=== PATIENT | female | born 1975 | race African-American/Black ===

== ENCOUNTER 2016-05-06 10:14 | Inpatient (IN) | payer OTHER ==
[2016-05-06] VITALS (7 sets, daily range): BP systolic 98–128; BP diastolic 48–79
[~2016-05-06] VITALS: Ht 167.6 cm; Wt 81.6 kg
[~2016-05-06 10:14] MED LIST: BACITRACIN 50,000 UNIT in IV NORMAL SALINE 1000ML BAG 1,000 ML IRR ONE; BUPIVACAINE 0.5% 50 ML VIAL. ONE; BUPIVACAINE MPF 0.5% 30 ML VIAL. IJ ONE; CEFAZOLIN 2GM PREMIX 50 ML IV PRN; CHOL10007 PO; CYAN250012 PO; CYCL10TA2 PO; DEXAMETHASONE SOD PHOS 20 MG/5 ML VIAL. ONE; DOCU100C PO; FENTANYL PF 100 MCG/2 ML VIAL. IV PRN; FENTANYL PF 100 MCG/2 ML VIAL. ONE; GELATIN SPONGE SIZE 100. ONE; HYDR-2666 PO; HYDROMORPHONE 2 MG/ML VIAL. IV PRN; LIDOCAINE 1% 1 ML SYRINGE. ID PRN; LIDOCAINE 1%/EPI 1:100,000 20 ML VIAL. ONE; LIDOCAINE 2% 100 MG/5 ML DISP.SYRIN. ONE; MIDAZOLAM HCL 2 MG/2 ML VIAL. ONE; ONDANSETRON PF 4 MG/2 ML VIAL. IV PRN; OXYC-244 PO; PHENYLEPHRINE 10 MG/ML VIAL. ONE; PROPOFOL 20 ML IV ONE; PROPOFOL 50 ML IV ONE; REMIFENTANIL 2 MG VIAL. IV ONE; ROCURONIUM 50 MG/5 ML VIAL. ONE; SUCCINYLCHOLINE 200 MG/10 ML VIAL. ONE; THROMBIN 20,000 UNIT SPRAY.SYRN KIT TP ONE; TRAZ100T12 PO
[2016-05-06] MEDS: IV RINGERS,LACTATED 1000ML 1,000 ML IV SCH ×2 (10:47→15:28)
[2016-05-06] MEDS ORDERED: GLYCOPYRROLATE 1 MG/5 ML VIAL. ONE (12:17)
[2016-05-06] MEDS ORDERED: PROPOFOL 50 ML IV ONE ×2 (12:57→14:29)
[2016-05-06] MEDS ORDERED: ONDANSETRON PF 4 MG/2 ML VIAL. ONE (14:21)
[2016-05-06] MEDS ORDERED: FENTANYL PF 100 MCG/2 ML VIAL. ONE (14:49)
[2016-05-06] MEDS ORDERED: DESFLURANE > 120 MINUTES IH ONE (14:49)
--- NOTE | 2016-05-06 15:00 | PDOC ---
BRIEF OPERATIVE NOTE Date: May 06, 2016 Pre-Op Diagnosis cervical herniated disk, cervical radiculopathy, weakness Post-Op Diagnosis same Procedure Performed anterior cervical discectomy and instrumented fusion C6-7 Surgeon Anu [employer] Laboratory Technician none Anesthesia Type: General Blood Loss 15mL Specimens Obtained disk/decompression Findings prominent herniated disk material C6-7 in the left lateral recess Complications none apparent Additional Remarks neuromonitoring potentials including motors improved compared to baseline at completion of procedure OPAL LOPEZ MD May 06, 2016 15:00
[2016-05-06] MEDS ORDERED: OXYCODONE/APAP 7.5/325 TABLET. PO PRN (15:15)
[2016-05-06] MEDS ORDERED: NALOXONE 0.4 MG/ML VIAL. IV PRN (15:15)
[2016-05-06] MEDS ORDERED: ZOLPIDEM 5 MG TABLET. PO PRN (15:15)
[2016-05-06] MEDS ORDERED: CALCIUM CARBONATE 500 MG TAB.CHEW PO PRN (15:15)
[2016-05-06] MEDS ORDERED: DIPHENHYDRAMINE HCL 25 MG CAPSULE PO PRN (15:15)
[2016-05-06] MEDS ORDERED: FENTANYL PF 100 MCG/2 ML VIAL. IV PRN (15:15)
[2016-05-06] MEDS ORDERED: DIPHENHYDRAMINE 50 MG/ML VIAL IV PRN (15:15)
[2016-05-06] MEDS ORDERED: MAG HYDROX/ALUMINUM HYDROX/SMC 30 ML ORAL.SUSP PO PRN (15:15)
[2016-05-06] MEDS ORDERED: ONDANSETRON PF 4 MG/2 ML VIAL. IV PRN (15:15)
[2016-05-06] MEDS ORDERED: ACETAMINOPHEN 325 MG TABLET. PO PRN (15:15)
[2016-05-06] MEDS ORDERED: 0.9 % SODIUM CHLORIDE 10 ML DISP.SYRIN. IV PRN (15:15)
[2016-05-06] MEDS ORDERED: MAGNESIUM HYDROXIDE 2,400 MG/30 ML ORAL.SUSP. PO PRN (15:15)
[2016-05-06] MEDS: FENTANYL PF 100 MCG/2 ML VIAL. IV PRN ×2 (15:45→15:50)
[2016-05-06] MEDS: PROCHLORPERAZINE 10 MG/2 ML VIAL. IV PRN ×2 (16:10→16:50)
[2016-05-06] MEDS: MORPHINE SULFATE 2 MG/ML DISP.SYRIN. IV PRN ×2 (16:12→16:49)
[2016-05-06] MEDS: CALCIUM CARB/VIT D3 500/200 TABLET PO SCH (19:16)
[2016-05-06] MEDS: DOCUSATE SODIUM 100 MG CAPSULE PO SCH (21:04)
[2016-05-06] MEDS: SENNOSIDES/DOCUSATE 8.6/50MG TABLET. PO SCH (21:04)
[2016-05-06] MEDS: METHOCARBAMOL 750 MG TABLET PO SCH (21:05)
[2016-05-06] MEDS: OXYCODONE/APAP 7.5/325 TABLET. PO PRN (23:19)
[2016-05-07 03:45] VITALS: BP_SYST 86; BP_SYST 97; BP_DIAS 51; BP_DIAS 61
[2016-05-07 06:35] VITALS: BP 98/62
[2016-05-07] MEDS ORDERED: FERROUS SULFATE 325 MG TABLET PO SCH (08:00)
[2016-05-07] MEDS: CALCIUM CARB/VIT D3 500/200 TABLET PO SCH (08:44)
[2016-05-07] MEDS: DOCUSATE SODIUM 100 MG CAPSULE PO SCH (08:44)
[2016-05-07] MEDS: SENNOSIDES/DOCUSATE 8.6/50MG TABLET. PO SCH (08:44)
[2016-05-07] MEDS: OXYCODONE/APAP 7.5/325 TABLET. PO PRN (08:44)
[2016-05-07] MEDS: METHOCARBAMOL 750 MG TABLET PO SCH (08:44)
--- NOTE | 2016-05-07 08:55 | PDOC ---
SUBJECTIVE Subjective Reports resolution of left arm pain, numbness, and weakness. Some incisional pain that is controlled. Reports swallowing/advancing diet without significant problem. "Sore throat." OBJECTIVE Vital Signs Vital Signs Date Time Temp Pulse Resp B/P Pulse Ox O2 Delivery O2 Flow Rate FiO2 05/07/16 08:44 16 Room Air 05/07/16 06:35 97.9 81 18 98/62 94 Room Air 97.9 05/07/16 03:45 97.9 81 18 97/61 94 Room Air 97.9 05/07/16 00:20 Room Air 05/06/16 23:20 97.9 87 18 98/48 93 Room Air 97.9 05/06/16 23:19 18 96 Room Air 05/06/16 20:30 98.0 80 18 108/55 96 Room Air 98.0 05/06/16 20:15 Room Air 05/06/16 19:30 98.1 91 18 116/71 95 Room Air 98.1 05/06/16 18:30 97.3 83 16 116/79 96 Room Air 97.3 05/06/16 18:15 88 122/73 05/06/16 18:00 90 120/69 05/06/16 17:45 97.7 97 16 128/71 97 Room Air 97.7 05/06/16 17:14 78 20 135/73 98 Room Air 05/06/16 17:00 98.0 93 20 131/66 95 Room Air 98.0 05/06/16 16:49 20 93 Room Air 05/06/16 16:47 98 20 112/68 94 Room Air 05/06/16 16:32 90 20 125/68 94 Room Air 05/06/16 16:18 Room Air 05/06/16 16:12 20 95 Room Air 05/06/16 16:10 98 20 133/72 96 Room Air 05/06/16 15:55 98.0 91 20 139/81 95 Room Air 98.0 05/06/16 15:50 22 99 Room Air 05/06/16 15:45 20 99 Aerosol Mask 10.0 05/06/16 15:40 102 20 144/89 100 Room Air 05/06/16 15:28 22 100 Simple Mask 10.0 05/06/16 15:25 98 20 148/80 100 Simple Mask 10 05/06/16 15:10 Mask 10 05/06/16 15:10 97.1 98 20 134/75 100 Simple Mask 10 97.1 05/06/16 10:34 97.0 94 16 146/81 98 Room Air 97.0 I & O Intake and Output 05/07/16 07:00 Intake Total 2000 ml Output Total 1965 ml Balance 35 ml Intake Oral 250 ml IV Total 1750 ml Output Urine Total 1950 ml Estimated Blood Loss 15 ml PHYSICAL EXAM Physical Exam AAOx4, NAD, speech fluent with good phonation, HALLMAN 5/5, sensation intact LT, dressing c/d/i, flat ASSESSMENT/PLAN Assessment/Plan POD 1 C6-7 ACDF -appears to be recovering well thus far -PT/OT -d/c home today -follow up in two weeks [phone] -rx's in chart (percocet, robaxin, stool softener) Problems: COMMENT Lab Laboratory Tests Test 05/06/16 10:45 Glucose (Fingerstick) 88mg/dL (70-99) OPAL LOPEZ MD May 07, 2016 08:55
[2016-05-07] MEDS ORDERED: MULTIVITAMIN with MINERAL TABLET. PO SCH (09:00)
[2016-05-07] MEDS ORDERED: METH-38 PO (10:58)
[2016-05-07 11:13] VITALS: BP 97/70
--- NOTE | 2016-05-12 14:07 | PATHOLOGY ---
PATHOLOGY REPORT * * * * * * * * FINAL DIAGNOSIS: Segments of cartilaginous tissue and bone, cervical disc and decompression: - Degenerative changes. COMMENT: There is no evidence of an acute inflammatory process or malignancy. (JPM:; d/t: 05/12/16) REPORT ELECTRONICALLY SIGNED BY: Serg Roman M.D. DATE/TIME: 05/12/2016 14:07 * * * * * * * * GROSS PATHOLOGY: Received in formalin labeled "Meliza Lyon - cervical disc and decompression," are multiple segments of cisneros-white rubbery and gritty tissue admixed with possible bone, measuring 3.8 x 3.2 x 0.5 cm in aggregate dimensions. The tissue is submitted representatively in cassette A1, following decalcification. (TTL; 05/07/2016) INITIAL CPT CODE(S): A; 50456, 98354 Professional services [place] [place] [address] Technical services performed by [facility] at [address] [place] [address] [address], [place] [address]. SPECIMEN(S) RECEIVED: A.Cervical disc and decompression CLINICAL HISTORY: Cervical radiculopathy and weakness, cervical disc herniation PATIENT: MELIZA LYON /AGE: 811/15/1975 (Age: 40) PATIENT #: [id number] ALT CASE #: SPECIMEN COLLECTION DATE: 05/06/2016 SPECIMEN RECEIVED DATE: 05/07/2016 [facility] - [address] [place] [address] - PHONE: [phone] * * * END OF REPORT * * *
--- NOTE | 2016-05-13 18:44 | OP ---
DATE OF SURGERY: 05/06/2016 SURGEON: Dr. Frandy Lopez. TRAUMA COUNSELLOR: None. PREOPERATIVE DIAGNOSES: Cervical herniated disk with cervical radiculopathy and weakness. PROCEDURE: Instrumented anterior cervical diskectomy and fusion utilizing structural allograft at cervical 6-7. ANESTHESIA: General. COMPLICATIONS: None intraprocedurally. INDICATIONS FOR THE PROCEDURE: The patient is a 40-year-old female with significant cervical radiculopathy and associated weakness localized to a prominent disk herniation noted at cervical C6-C7. Please refer to the patient chart for additional detail. DESCRIPTION OF PROCEDURE: After informed consent was obtained, the patient was brought into the operating room and was placed under general anesthesia. Neuro monitoring was instituted and baseline potentials were obtained. She was placed in the supine position. A shoulder bump was placed under the shoulder and the head placed in very slight extension exposing the anterior neck. This region was prepped and draped in the usual sterile fashion. Fluoroscopy was utilized to localize an appropriate incision location and a horizontal incision centered over the region of the cervical 6-7 was made with a 10 blade scalpel. Blunt dissection techniques were utilized to dissect the underlying soft tissues and a plane was developed between the carotid sheath laterally and the trachea and the esophagus medially after the platysma was sharply divided in the plane of the incision. Scar tissue was encountered near the previous thyroidectomy. This was gently dissected free with blunt dissection techniques to approach the anterior cervical spine as mentioned above. Level was verified with fluoroscopy and distraction pins were instituted at cervical 6 and cervical 7 and a small amount of cervical traction was obtained after self retainers were instituted. An annulotomy was performed after fluoroscopy was utilized to verify the appropriate level at cervical 6-7. A pituitary rongeur was utilized to remove the disk material and a curette was utilized to remove further disk material from the endplates cervical 6 and cervical 7. Dissection was carried out to the posterior longitudinal ligament. This was gently taken down with a Kerrison rongeur. Significant amount of disk material was identified anterior to this ligament in the epidural space, particularly on the left side. This material was gently teased posteriorly and removed with a pituitary rongeur. Upon completion of this, the thecal sac and neural elements were noted to be very well decompressed. This was verified with direct visualization as well as gentle palpation with a micro blunt hook. Also, it was noted that neuro monitoring potentials including motor potentials were improved upon completion of the discectomy. A structural allograft was subsequently instituted at cervical 6-7. An Amendia anterior plate and screw system was instituted once the graft was in place and traction from the pins was removed. The plate and screws were secured with 2 screws in cervical 6 and 2 in cervical 7 according to the glass mechanic's specifications. Fluoroscopy was utilized to verify that the fusion construct was adequate. Once this was complete, pristine hemostasis was achieved with FloSeal, irrigation, as well as thrombin, and some minimal use of bipolar electrocautery. Once complete, the wound was generously irrigated with antibiotic irrigation prior to the final closure. The platysma was reapproximated with Vicryl suture in simple interrupted fashion. Subcutaneous tissues were reapproximated with Vicryl suture in an interrupted inverted fashion and the skin was reapproximated with 4-0 Vicryl in a running subcuticular fashion. Mastisol and Steri-Strips were applied and the wound was dressed with Telfa and Tegaderm. Neuromonitoring potentials remained at least baseline and some improvement was reported upon completion of the procedure. At the end the procedure, all needle and sponge counts were correct x 2. The patient was extubated in the operating room and taken to recovery in stable condition. There were no intraprocedural complications apparent. FRANDY LOPEZ MD DR: SAMPSON/george JOB#: [id number] / [id number] ALICE
--- NOTE | 2016-05-29 21:37 | HP ---
ADMIT DATE: 05/06/2016 CHIEF COMPLAINT: Neck pain with left upper extremity pain. HISTORY OF PRESENT ILLNESS: The patient is a pleasant 40-year-old left-handed female who presented to clinic with neck and left upper extremity pain. This pain persists and she presents for surgery. The pain begins in the neck and extends down to the left upper extremity to the second and third fingers. She stated that it started in 01/2016, when she was getting out of a shower and slipped. She reached to touch herself from falling with her left arm and had sudden onset of left upper extremity pain in the aforementioned distribution. She explains that she had the sensation that she had a catch in her neck for some time prior to this event, but did not have any left upper extremity pain. She reports that she has had decreased dexterity in the left hand, occasionally dropping objects. Also, she reports that she feels that she is weaker when she is pushing forward with her left arm relative to the right. She denies any bowel or bladder changes. She reports having pain management treatment without significant benefit. She denies other treatments. She presents for evaluation of the cervical spine. PAST MEDICAL HISTORY: Includes anxiety, depression, gastroesophageal reflux disease, IBS, constipation, colitis, chronic cervicitis, vitamin D deficiency. MEDICATIONS: Include cyclobenzaprine. She has had a Medrol Dosepak, trazodone, and Percocet. ALLERGIES: No known drug allergies. PAST SURGICAL HISTORY: Includes thyroidectomy in 1996, section in 1994 and hysterectomy in 2012. FAMILY HISTORY: Positive for diabetes, brain tumor, and end-stage renal disease. SOCIAL HISTORY: The patient denies use of tobacco, illicit drugs or alcohol. She is . 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 REVIEW OF SYSTEMS: A 10-point review of systems is negative except for the aforementioned with the exception of depression, anxiety, sleep difficulty, and fatigue. PHYSICAL EXAMINATION: GENERAL: She is in no acute distress. She is well-developed and well-nourished. HEENT: Her head is normocephalic and atraumatic. Her pupils are equal, round and reactive to light and accommodation. NECK: Supple. There is a well-healed surgical scar noted anteriorly from the prior thyroid surgery. CARDIOVASCULAR: Her pulse is regular. CHEST: Normal and expansion. LUNGS: Respirations are even and nonlabored. NEUROLOGIC: She is awake, alert and oriented x 4. Speech is fluent. She has grossly normal memory and good general fund of knowledge. She is cooperative with the exam. Cranial nerves 2-12 are intact bilaterally. Strength is 5/5 in all major muscle groups in her bilateral upper and bilateral lower extremities with the exception of 4/5 left carbon grinder strength and 4/5 left tricep extension. Deep tendon reflexes are symmetrical. Her sensation is intact to light touch. She has a normal stance and stride. SKIN: Warm and dry with good turgor. EXTREMITIES: There is no cyanosis, clubbing or edema. Peripheral pulses are equal. MUSCULOSKELETAL: There is no swelling or deformity in the extremities. Her muscle tone appears normal. PSYCHIATRIC: She has appropriate mood and effect at this time. Her judgment and insight appear normal. ASSESSMENT: This is a 40-year-old female who has a cervical disk herniation with cervical radiculopathy and some weakness. Imaging findings and therapeutic options were discussed with the patient. She has a prominent disk herniation in the left lateral recess at cervical 6-7 with concordant radiculopathy in the left upper extremity and weakness. She explains that she has had one injection by pain management, which did not provide any benefit. Given her symptoms, radiographic findings, and physical examination, I feel that she may benefit from surgical decompression. A cervical 6-7 anterior cervical diskectomy and fusion was discussed with the patient including explanation of potential risks, benefits, and expectations. After careful consideration of these things, she elects to proceed. Medical clearance is obtained from her primary care physician and she presents for the aforementioned surgery. OTHER NOTES: Radiology: There is an MRI of the cervical spine from 03/06/2016, at [facility]. Some diffuse degenerative changes are noted. There is a large left paracentral disk herniation at cervical 6-7 with significant mass effect on the neural elements in the lateral recess at this location. At C5-C6, there is a very small central/right paracentral disk bulge without high grade stenosis. OPAL LOPEZ MD DR: SAMPSON/george JOB#: [id number] / [id number]
== END 2016-05-07 11:25 | disposition home or self-care (01) | DRG 473 ==
LOC: OPSVCIP 10:14 → 4 SOUTHEST 17:40
PROVIDERS: ADMIT Neurological Surgery; ATTEND Neurological Surgery
PROC: 0RG10Z0 (ICD-10-PCS; 2016-05-06)
PROC: 0RB30ZZ Excision of Cervical Vertebral Disc, Open Approach (ICD-10-PCS; principal; 2016-05-06 12:00)
DX: M50.123 Cervical disc disorder at C6-C7 level with radiculopathy (principal)
CPT/HCPCS: 76000; 82947; 88304; 88311; C1713; J0330; J0690; J0780; J1100; J2250; J2270; J2405; J2704; J3010; J3490; J7030; J7120

== ENCOUNTER → 2016-06-16 | Outpatient (CLI) | payer OTHER ==
[~2016-06-16] MED LIST changes: -BACITRACIN 50,000 UNIT in IV NORMAL SALINE 1000ML BAG 1,000 ML IRR ONE; -BUPIVACAINE 0.5% 50 ML VIAL. ONE; -BUPIVACAINE MPF 0.5% 30 ML VIAL. IJ ONE; -CEFAZOLIN 2GM PREMIX 50 ML IV PRN; -DEXAMETHASONE SOD PHOS 20 MG/5 ML VIAL. ONE; -FENTANYL PF 100 MCG/2 ML VIAL. IV PRN; -FENTANYL PF 100 MCG/2 ML VIAL. ONE; -GELATIN SPONGE SIZE 100. ONE; -HYDROMORPHONE 2 MG/ML VIAL. IV PRN; -LIDOCAINE 1% 1 ML SYRINGE. ID PRN; -LIDOCAINE 1%/EPI 1:100,000 20 ML VIAL. ONE; -LIDOCAINE 2% 100 MG/5 ML DISP.SYRIN. ONE; +METH-38 PO; -MIDAZOLAM HCL 2 MG/2 ML VIAL. ONE; -ONDANSETRON PF 4 MG/2 ML VIAL. IV PRN; -PHENYLEPHRINE 10 MG/ML VIAL. ONE; -PROPOFOL 20 ML IV ONE; -PROPOFOL 50 ML IV ONE; -REMIFENTANIL 2 MG VIAL. IV ONE; -ROCURONIUM 50 MG/5 ML VIAL. ONE; -SUCCINYLCHOLINE 200 MG/10 ML VIAL. ONE; -THROMBIN 20,000 UNIT SPRAY.SYRN KIT TP ONE
--- NOTE | 2016-06-16 12:29 | RAD ---
Indication post cervical fusion. AP and lateral views of the cervical spine were obtained. Note is made of a previous examination 10 years ago. Anterior fusion with an associated bone plug is noted at C6-7. No complication is seen. Osteophytes are noted anteriorly at C5-6. An acute finding is not apparent. The prevertebral soft tissues appear unremarkable. IMPRESSION: Anterior fusion C6-7.
== END | disposition home or self-care (01) ==
LOC: RAD 11:57
PROVIDERS: ATTEND Neurological Surgery
DX: M54.2 Cervicalgia (principal)
CPT/HCPCS: 72040

== ENCOUNTER → 2016-07-28 | Outpatient (CLI) | payer OTHER ==
--- NOTE | 2016-07-28 16:08 | RAD ---
Indication pain. AP and lateral views of the cervical spine were obtained. Comparison is made to an exam 06/16/2016. Anterior fusion at C6-7 is noted. There are degenerative changes at C5-6. The prevertebral soft tissues appear normal. Acute bony finding is not seen. There has not been a significant change when compared to the previous exam. IMPRESSION: Postop changes. No acute finding. No significant change
== END | disposition home or self-care (01) ==
LOC: RAD 15:38
PROVIDERS: ATTEND Neurological Surgery
DX: M54.2 Cervicalgia (principal)
CPT/HCPCS: 72040

== ENCOUNTER → 2016-10-10 | Outpatient (CLI) | payer OTHER ==
[~2016-10-10] MED LIST changes: +BARIUM SULFATE 40% (APPLE) 148 GM PWD. PO ONE; +CHOL100014 PO; -CHOL10007 PO; +DOCU-150 PO; -DOCU100C PO; -HYDR-2666 PO; +HYDR-2758 PO; -OXYC-244 PO; +OXYC-327 PO
--- NOTE | 2016-10-10 16:18 | RAD ---
Video swallow study 10/10/2016 Indication: Dysphagia Comparison: None available Technique:. Fluoroscopy was performed during the ingestion of barium coated solids, barium coated pureed food and thin barium liquid. Findings: No aspiration with barium coated liquids and barium coated pureed food. There is aspiration with thin barium liquid, while drinking from a straw. When drinking directly from the cup, no aspiration was identified. Imaging marginal osteophytosis noted at C5-C6. Anterior cervical discectomy and fusion identified at C6-C7. Impression: Aspiration with thin barium liquid. Please see separate speech pathology report for further details.
== END | disposition home or self-care (01) ==
LOC: RAD 14:43
PROVIDERS: ATTEND Otolaryngology
DX: R09.89 Other specified symptoms and signs involving the circulatory and respiratory systems (principal); R13.10 Dysphagia, unspecified
CPT/HCPCS: 74230; 92526; 92611

== ENCOUNTER → 2016-10-29 | Outpatient (CLI) | payer OTHER ==
[~2016-10-29] MED LIST changes: -BARIUM SULFATE 40% (APPLE) 148 GM PWD. PO ONE
--- NOTE | 2016-10-29 11:02 | RAD ---
Cervical spine, 2 views, 10/29/2016: History: Follow-up cervical fusion Comparison is made to a study from 07/28/2016. There is an anterior fixation plate at C6-7 attached to those 2 vertebral bodies via 2 screws at each level. A partially radiopaque disc spacer is present at this level. The vertebral alignment through this region is anatomic. There is narrowing of the C5-6 disc space with moderate anterior spurring. There is straightening of the normal cervical lordosis. No fracture or dislocation is evident. No new abnormality is detected. IMPRESSION: Stable anterior spinal fusion at C6-7
== END | disposition home or self-care (01) ==
LOC: RAD 07:37
PROVIDERS: ATTEND Neurological Surgery
DX: M54.2 Cervicalgia (principal)
CPT/HCPCS: 72040

== ENCOUNTER → 2017-10-02 | Day surgery (SDC) | payer OTHER ==
[~2017-10-02] MED LIST changes: -CHOL100014 PO; -CYAN250012 PO; -CYCL10TA2 PO; -DOCU-150 PO; -HYDR-2758 PO; +IV RINGERS,LACTATED 1000ML 1,000 ML IV; +LIDOCAINE 2% PF Vial for OR 5 ML VIAL.; -METH-38 PO; -OXYC-327 PO; +PROPOFOL 20 ML IV; -TRAZ100T12 PO
[2017-10-02] MEDS: IV RINGERS,LACTATED 1000ML 1,000 ML IV (08:13)
== END | disposition home or self-care (01) ==
LOC: SURG 07:39
DX: K64.0 First degree hemorrhoids (principal); K21.0 Gastro-esophageal reflux disease with esophagitis; K59.00 Constipation, unspecified; F32.9 Major depressive disorder, single episode, unspecified; F41.9 Anxiety disorder, unspecified; M16.10 Unilateral primary osteoarthritis, unspecified hip; E66.9 Obesity, unspecified; Z72.89 Other problems related to lifestyle; Z98.890 Other specified postprocedural states; Z90.710 Acquired absence of both cervix and uterus; Z98.51 Tubal ligation status; Z86.010 Personal history of colon polyps; Z86.2 Personal history of diseases of the blood and blood-forming organs and certain disorders involving the immune mechanism
CPT/HCPCS: 43239; 45378; 88305; J2001; J2704

== ENCOUNTER → 2017-10-23 | Outpatient (CLI) | payer OTHER ==
[2017-10-23] MEDS: SINCALIDE 1.7 MCG in IV NORMAL SALINE 50ML 30 ML IV (08:18)
== END | disposition home or self-care (01) ==
LOC: US 07:16
DX: R10.13 Epigastric pain (principal); R14.0 Abdominal distension (gaseous); F32.9 Major depressive disorder, single episode, unspecified; K21.0 Gastro-esophageal reflux disease with esophagitis; E66.9 Obesity, unspecified; Z86.010 Personal history of colon polyps; Z86.2 Personal history of diseases of the blood and blood-forming organs and certain disorders involving the immune mechanism
CPT/HCPCS: 76705; 78226; 96374; 96375; A9537; J2805

== ENCOUNTER → 2017-10-23 | Outpatient (CLI) | payer OTHER | END | disposition home or self-care (01) | LOC: US 06:51 | DX: R22.2 Localized swelling, mass and lump, trunk (principal); K21.0 Gastro-esophageal reflux disease with esophagitis; E66.9 Obesity, unspecified; Z86.010 Personal history of colon polyps; Z90.710 Acquired absence of both cervix and uterus | CPT/HCPCS: 76536 ==

== ENCOUNTER → 2017-11-19 | Outpatient (CLI) | payer OTHER ==
[2017-10-02 09:35] VITALS: BP 110/69
[~2017-11-19] MED LIST changes: +CHOL100014 PO; +CYAN250012 PO; +CYCL10TA2 PO; +DOCU-150 PO; +HYDR-2758 PO; -IV RINGERS,LACTATED 1000ML 1,000 ML IV; -LIDOCAINE 2% PF Vial for OR 5 ML VIAL.; +METH-38 PO; +OMEP40CA5 PO; +OXYC-327 PO; -PROPOFOL 20 ML IV; +TRAZ-86 PO
--- NOTE | 2017-11-19 10:44 | KCIC ---
MR of the left shoulder Indication: Bursitis. Left shoulder pain without known injury for over 9 months. Technique: Standard multiplanar sequences are obtained. Findings: Artifact: No significant image degradation. Acromioclavicular joint: Intact. Minimal marrow edema at the outer clavicle. Rotator cuff: * Supraspinatus-infraspinatus tendon: Mild degenerative signal. No measurable tear. * Subscapularis tendon: Tendinosis. No high-grade tear. * Muscle bulk: Within normal limits * Subacromial subdeltoid bursa: Trace effusion. Fluid: No significant glenohumeral effusion. Glenohumeral cartilage: No acute defect or advanced DJD. Labrum: Tear of the posterosuperior labrum. Biceps tendon: Intact Bones: Mild cystic change at the greater tuberosity. No aggressive bone destruction or significant bone lesion. No acute fracture. Soft tissue: No acute findings. Impression: 1. Rotator cuff tendinosis without tear. 2. Posterosuperior labral tear. 3. Minimal marrow edema of the outer clavicle, questionable significance, but could indicate a small contusion or stress reaction. Electronically signed by: Alec Heck MD (11/19/2017 10:41 AM) [facility]
== END | disposition home or self-care (01) ==
LOC: KCIC MRI 07:45
PROVIDERS: ATTEND Orthopaedic Surgery
DX: S43.492A Other sprain of left shoulder joint, initial encounter (principal); K21.0 Gastro-esophageal reflux disease with esophagitis; Z90.710 Acquired absence of both cervix and uterus; Z86.010 Personal history of colon polyps; Z86.2 Personal history of diseases of the blood and blood-forming organs and certain disorders involving the immune mechanism; X58.XXXA Exposure to other specified factors, initial encounter; Y93.89 Activity, other specified; Y92.89 Other specified places as the place of occurrence of the external cause; Y99.8 Other external cause status
CPT/HCPCS: 73221

== ENCOUNTER 2017-12-08 10:09 | Day surgery (SDC) | payer OTHER ==
[~2017-12-08] VITALS: Ht 167.6 cm; Wt 85.3 kg
[~2017-12-08 10:09] MED LIST changes: +ACET500T33 PO; +HYDROmorphone 2 MG/ML VIAL IV PRN; +IV RINGERS,LACTATED 1000ML 1,000 ML IV SCH; +LIDOCAINE 1% PF 2 ML VIAL. ID PRN; +LORA10TA68 PO; +MELO15TA6 PO; +MORPHINE SULFATE 2 MG/ML VIAL. IV PRN; +OMEP20CA9 PO; +ONDANSETRON PF 4 MG/2 ML VIAL. IV PRN; +OXYC-323 PO; +PROCHLORPERAZINE 10 MG/2 ML VIAL. IV PRN; +fentaNYL PF VIAL 100 MCG/2 ML VIAL IV PRN
[2017-12-08] MEDS ORDERED: DEXAMETHASONE SOD PHOS 20 MG/5 ML VIAL. ONE (10:18)
[2017-12-08] MEDS ORDERED: PROPOFOL 20 ML IV ONE (10:18)
[2017-12-08] MEDS ORDERED: ONDANSETRON PF 4 MG/2 ML VIAL. ONE (10:19)
[2017-12-08] MEDS ORDERED: ROCURONIUM 50 MG/5 ML VIAL. ONE (10:19)
[2017-12-08] MEDS ORDERED: fentaNYL PF VIAL 100 MCG/2 ML VIAL ONE ×2 (10:20→16:18)
[2017-12-08] MEDS ORDERED: MIDAZOLAM HCL/PF 2 MG/2 ML VIAL. ONE ×2 (10:20→11:19)
[2017-12-08] MEDS ORDERED: ROPIVacaine 0.5% PF 20 ML VIAL. ONE (11:20)
[2017-12-08] MEDS ORDERED: EPINEPHrine VIAL 30 MG/30 ML VIAL ONE (12:04)
[2017-12-08] MEDS ORDERED: ePHEDrine PF IN SALINE 50 MG/5 ML DISP.SYRIN IV ONE (14:44)
[2017-12-08] MEDS ORDERED: NEOSTIGMINE METHYLSULFATE 5 MG/5 ML SYRINGE. ONE (14:45)
[2017-12-08] MEDS ORDERED: GLYCOPYRROLATE 1 MG/5 ML VIAL. ONE (14:45)
[2017-12-08] MEDS ORDERED: SEVOFLURANE 61 TO 120 MINUTES. IH ONE (15:16)
--- NOTE | 2017-12-08 15:57 | DISCH ---
DISCHARGE INSTRUCTIONS Condition on Discharge Condition on Discharge: Stable Activity After Discharge Activity Instructions for Disc: Other, see below (gentle pendulum exercises and fine motor use with the left hand with left elbow below shoulder level) Lifting Instructions after Dis: No pulling or pushing, Do not lift >10 pounds Exercise Instruction after Dis: Exercise per therapy (Home exercises x 4 weeks : pendulum exercises, gentle lifting elbow to shoulder level only) Driving Instructions after Dis: Other, see below (May drive with right arm if off of pain medicines) Diet after Discharge Diet after Discharge: Regular Wound Incision Care Wound/Incision Care: Ice to area for comfort, Change dressing (remove dressing in 2 days may then shower no soaking until sutures out) Contacting the DRWillow after DC Call your doctor for: Concerns you may have Follow-Up Follow up with: Robert 1 week MELANI PAGE MD Dec 08, 2017 15:57
[2017-12-08] MEDS ORDERED: OXYC-327 PO (15:59)
[2017-12-08] MEDS: fentaNYL PF VIAL 100 MCG/2 ML VIAL IV PRN ×2 (16:22→17:03)
[2017-12-08] MEDS ORDERED: oxyCODONE/APAP 7.5/325 1 TAB TABLET PO ONE (17:15)
[2017-12-08 17:51] VITALS: BP 115/56
--- NOTE | 2017-12-08 20:22 | PDOC4 ---
Operative Note Operative Note Date of surgery: 12/08/2017 Preoperative diagnosis: Superior labral tear left shoulder Postoperative diagnosis: Same Operative procedure: Left shoulder arthroscopy SLAP repair Surgeon: Robert Assist: Lorie Anesthesia: Gen. endotracheal plus scalene block Estimated blood loss: 10 mL Complications: None Operative indications: Patient is a 42-year-old female with left shoulder pain unresponsive to nonoperative treatment that is severely affecting her activities of daily living. Physical examination revealed some pain suspicious for bicipital irritation with her examination findings and MRI showed some superior labral irregularity as well. I discussed with her operative treatment options of repair versus biceps tenodesis and addressing any other pathologic conditions found. All her questions were answered she is aware of the recovery process rationale for protection of any repair risks of nonhealing continued pain infection nerve or blood vessel damage medical or other anesthetic complications among others and she wishes to proceed with operative evaluation and treatment. Operative text: Patient was identified procedure verified patient placed in the supine position on the operating table. After adequate amounts of general endotracheal anesthesia plus a pre-existing scalene block were obtained she was placed decubitus left side up using the beanbag and all bony prominences were well-padded. The left shoulder was then prepped and draped in standard sterile fashion and after timeout was performed patient procedure identified and verified the shoulder was examined under anesthesia found to have full range of motion no instability. She was then placed in the arthroscopic arm lewis with a total of 10 pounds of traction and a standard posterior portal was established an anterior portal established using spinal needle localization and the shoulder joint was systematically examined. She was noted to have significant superior labral fraying which was trimmed back to stable tissue but then noted to have significant peel back lesion consisting of a type II SLAP tear with an otherwise intact biceps tendon which showed no evidence of subluxation fraying or other damage of any type. Subscapularis and the remainder the rotator cuff as well as bare area of the humerus were noted to be intact as was the glenohumeral joint surfaces and other capsule ligament structures. Given the orientation I elected to perform a SLAP repair and juggernaut all suture anchors were placed anterior and posterior to the biceps anchor using a posterior lateral portal through the rotator cuff musculature. A disposable suture passer was used to pass the suture anterior and posterior to the biceps anchor and suture was secured with a sliding locking knot backed up by alternating post-half hitches. The superior glenoid had been previously prepared with an arthroscopic bur to a good bleeding bony surface to promote healing. Excellent apposition was noted in the repair and no peelback possible throughout range of motion. The joint was drained of arthroscopic fluid portals closed with nylon suture sterile dressings were applied she was placed in an immobilizer extirpated transferred to postop holding in stable condition having tolerated procedure well MELANI PAGE MD Dec 08, 2017 20:22
== END 2017-12-08 18:15 | disposition home or self-care (01) ==
LOC: SURG 10:09
PROVIDERS: ATTEND Orthopaedic Surgery
DX: S43.432A Superior glenoid labrum lesion of left shoulder, initial encounter (principal); F41.9 Anxiety disorder, unspecified; F32.9 Major depressive disorder, single episode, unspecified; K21.9 Gastro-esophageal reflux disease without esophagitis; E55.9 Vitamin D deficiency, unspecified; Z86.010 Personal history of colon polyps; K58.9 Irritable bowel syndrome, unspecified; Z90.710 Acquired absence of both cervix and uterus; Z98.890 Other specified postprocedural states; Z72.89 Other problems related to lifestyle; Z98.1 Arthrodesis status; Z79.899 Other long term (current) drug therapy; Z83.3 Family history of diabetes mellitus; X58.XXXA Exposure to other specified factors, initial encounter; Y93.89 Activity, other specified; Y92.89 Other specified places as the place of occurrence of the external cause; Y99.8 Other external cause status
CPT/HCPCS: 29807; A7015; C1713; J0171; J0690; J1100; J2250; J2405; J2704; J2710; J2795; J3010; J3490; C1769